=== PATIENT | female | born 1980 | race Caucasian/White ===

== ENCOUNTER 2018-08-17 12:25 | Emergency (ER) | payer MEDICAID ==
[~2018-08-17] VITALS: Ht 160 cm; Wt 63.0 kg
[2018-08-17] MEDS ORDERED: ACETAMINOPHEN WITH CODEINE 300/30MG TABLET PO STA (15:46)
[2018-08-17 15:54] LABS: BASOPHILS % 0.5 % (0.0-2.0); HEMATOCRIT. 34.5 % (36.0-48.0); HEMOGLOBIN. 11.7 g/dL (12.0-16.0); LYMPHOCYTES % 10.9 % (20.0-50.0); MEAN CORPUSCULAR HEMOGLOBIN 27.9 pg (28.0-32.0); MEAN PLATELET VOLUME 10.5 fl (7.4-10.4); MONOCYTES % 5.3 % (2.0-8.0); NEUTROPHILS % 82.3 % (40.0-76.0); PLATELET 150 x1000/uL (130-400); RED CELL DISTRIBUTION WIDTH 13.6 % (11.6-14.6)
[2018-08-17 15:59] LABS: CLARITY URINE CLEAR (CLEAR); COLOR URINE RED (YELLOW); KETONES URINE NEGATIVE (NEGATIVE); LEUKOCYTE ESTERASE URINE 2+ (NEGATIVE); NITRITE URINE NEGATIVE (NEGATIVE); OCCULT BLOOD URINE 3+ (NEGATIVE); PH URINE 6.5 (4.5-8.0); PROTEIN URINE 2+ (NEGATIVE); SPECIFIC GRAVITY URINE 1.001 (1.005-1.030); UROBILINOGEN URINE 0.2 E.U./dL (0.2-1.0)
[2018-08-17 15:59] LABS: CHLORIDE 105 mEq/L (98-107)
[2018-08-17] MEDS ORDERED: CEPHALEXIN 500MG CAPSULE PO ONE (17:00)
[2018-08-17 18:05] VITALS: BP 107/71
== END 2018-08-17 18:15 | disposition home or self-care (01) ==
LOC: ER 12:25
DX: N30.90 Cystitis, unspecified without hematuria (principal); K80.20 Calculus of gallbladder without cholecystitis without obstruction
CPT/HCPCS: 36415; 80053; 81003; 85025; 87077; 87086; 99284; Z7610

== ENCOUNTER 2019-02-04 20:19 | Emergency (ER) | payer MEDICAID ==
[~2019-02-04] VITALS: Ht 160 cm; Wt 66.0 kg
[2019-02-05] MEDS ORDERED: HYDROCODONE/ACETAMINOPHEN 5/325MG TABLET PO ONE (00:30)
[2019-02-05] MEDS ORDERED: IBUPROFEN 600MG TABLET PO ONE (00:30)
[2019-02-05 00:39] VITALS: BP 108/66
== END 2019-02-05 01:20 | disposition home or self-care (01) ==
LOC: ER 20:19
DX: H66.92 Otitis media, unspecified, left ear (principal)
CPT/HCPCS: 99283

== ENCOUNTER 2025-08-08 14:13 | Emergency (ER) | payer MEDICAID ==
[~2025-08-08] VITALS: Ht 162.6 cm; Wt 65.0 kg
[2025-08-08 14:18] VITALS: O2SAT 98
[2025-08-08] MEDS ORDERED: KETOROLAC 15MG/ML VIAL IV ONE (14:45)
[2025-08-08] MEDS: SODIUM CHLORIDE 0.9% 1,000 ML IV ONE (15:09)
[2025-08-08 15:26] LABS: BASOPHILS % 0.5 % (0.0-2.0); EOSINOPHILS % 2.3 % (0.0-5.0); HEMATOCRIT. 35.1 % (36.0-48.0); HEMOGLOBIN. 11.5 g/dL (12.0-16.0); LYMPHOCYTES % 18.6 % (20.0-50.0); MEAN PLATELET VOLUME 9.7 fl (7.4-10.4); MONOCYTES % 4.4 % (2.0-8.0); NEUTROPHILS % 74.2 % (40.0-76.0); PLATELET 178 x1000/uL (130-400); RED BLOOD CELL COUNT 4.23 mill/uL (4.2-5.4); RED CELL DISTRIBUTION WIDTH 13.7 % (11.6-14.6)
[2025-08-08 15:40] LABS: CREATININE 0.9 mg/dL (0.6-1.0)
[2025-08-08 15:41] LABS: UREA NITROGEN BLOOD 14 mg/dL (9-23)
[2025-08-08 15:42] LABS: ASPARTATE AMINOTRANSFERASE 38 IU/L (<34); B-HCG QUANTITATIVE < 1 mIU/mL (<6)
[2025-08-08 15:43] LABS: BILIRUBIN DIRECT 0.2 mg/dL (<=3.0); BILIRUBIN TOTAL 0.7 mg/dL (0.1-1.0); PROTEIN TOTAL 6.7 g/dL (6.0-8.3)
[2025-08-08 15:44] LABS: HCG SCREEN NEGATIVE
[2025-08-08] MEDS ORDERED: IBUP-2028 MT (16:32)
[2025-08-08 18:35] VITALS: BP 98/65; PULSE 74; RESP 21; TEMP 36.6; O2SAT 99
== END 2025-08-08 18:39 | disposition home or self-care (01) ==
LOC: ER 14:13
DX: K80.70 Calculus of gallbladder and bile duct without cholecystitis without obstruction (principal); N89.8 Other specified noninflammatory disorders of vagina
CPT/HCPCS: 80076; 80048; 84703; 84702; 83690; 85025; 86850; 86900; 86901; 36415; 76705; 93005; 96360; 99284; J7030; Z7610 ×2; A4606